=== PATIENT | female | born 1955 ===

== ENCOUNTER 2017-06-09 12:18 | Inpatient (IN) | payer OTHER ==
[~2017-06-09] VITALS: Ht 149.9 cm; Wt 62.1 kg
[2017-06-09] MEDS ORDERED: JANUVIA100 MG (12:36)
[2017-06-09] MEDS ORDERED: VASOTEC20 M1 (12:37)
[2017-06-09] MEDS ORDERED: CLONAZEPAM0.5 MG (12:37)
[2017-06-09] MEDS ORDERED: EFFEXOR XR75 MG (12:38)
[2017-06-13] MEDS ORDERED: CELEBREX200MG PO (10:28)
[2017-06-13] MEDS ORDERED: OMEPRAZOLE20 MG PO (10:28)
== END 2017-06-13 12:45 | disposition home or self-care (01) | DRG 392 ==
LOC: ER 12:18 → SURG 06-10 15:37 → SEC-K 06-10 15:37 → SURG 06-10 18:07
PROC: 0DJD8ZZ Inspection of Lower Intestinal Tract, Via Natural or Artificial Opening Endoscopic (ICD-10-PCS; principal; 2017-06-12)
DX: K57.32 Diverticulitis of large intestine without perforation or abscess without bleeding (principal); K63.89 Other specified diseases of intestine